=== PATIENT | female | born 1980 | race Two or more races ===

== ENCOUNTER → 2024-01-31 | Outpatient (CLI) | payer MEDICAID, SELFPAY ==
--- NOTE | 2024-01-31 13:55 | XR_ITS ---
Examination: AP pelvis 2 views TECHNIQUE: AP pelvis hips in neutral position, AP pelvis hips abduction position 2 views Exam date and time: January 31, 2024 1649 hours INDICATIONS: Left hip pain beginning 3 years ago. FINDINGS: No hip fracture or hip dislocation No significant hip arthritic change No avascular necrosis Bones of the pelvis intact IMPRESSION: No hip or pelvic fracture No significant arthritic change
== END | disposition home or self-care (01) ==
LOC: CDIM 02-01 09:14
PROVIDERS: PCP Nurse Practitioner Family; Referring Provider Nurse Practitioner Family; Visit Provider Nurse Practitioner Family
DX: R10.2 Pelvic and perineal pain (principal)
CPT/HCPCS: 72170

== ENCOUNTER → 2024-03-09 | Outpatient (CLI) | payer MEDICAID, SELFPAY ==
--- NOTE | 2024-03-09 16:30 | XR_ITS ---
Examination: Abdomen sonogram, Limited Date and time of exam: March 09, 2024 at 1646 hrs. Indications: Left inguinal and groin pain post inguinal hernia repair one year ago Technique: Real-time main scale transabdominal sonographic images of the upper abdomen obtained. Findings: No cystic or solid mass depicted Impression: No cystic or solid mass depicted As clinically warranted, consider CT pelvis without intravenous contrast follow-up
== END | disposition home or self-care (01) ==
PROVIDERS: PCP Nurse Practitioner Family; Referring Provider Internal Medicine; Visit Provider Internal Medicine
DX: K40.91 Unilateral inguinal hernia, without obstruction or gangrene, recurrent (principal)
CPT/HCPCS: 76705

== ENCOUNTER 2024-05-06 17:28 | Emergency (ER) | payer MEDICAID, SELFPAY ==
[2024-05-06 18:17] VITALS: BP 159/95; PULSE 87; RESP 16; TEMP 37.2; O2SAT 99; BMI 29.0
--- NOTE | 2024-05-06 18:55 | EKG_ITS ---
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pdf
--- NOTE | 2024-05-06 18:55 | XR_ITS ---
Examination: PA lateral chest 2 views Technique: Upright PA lateral chest 2 views Exam date and time: May 06, 2024 1933 hrs. Indications: Onset chest pain today. Findings: Normal heart size No pneumonia or pulmonary edema The osseous structures are intact Impression: No pneumonia or pulmonary edema
--- NOTE | 2024-05-06 18:55 | PD.EDRME ---
Rapid Medical Screening Exam RME Arrival date/time: 05/06/24 17:28 43-year-old female reports with complaints of chest pain that radiates to left neck and jaw for several days Chief Complaint: General Adult/Misc Complain Time Seen by Provider: 05/06/24 18:21 Vital signs: Vital Signs Temperature 98.9 F 05/06/24 18:17 Pulse Rate 87 05/06/24 18:17 Respiratory Rate 16 05/06/24 18:17 Blood Pressure 159/95 H 05/06/24 18:17 Pulse Oximetry (%) 99 05/06/24 18:17 Oxygen Delivery Method Room Air 05/06/24 18:17 RME Narrative: 23:26 patient is a 43-year-old female with history of hypothyroidism, takes levothyroxine daily, presents to the emergency department with multiple complaints. Patient states that she was feeling sick since yesterday. By this she means that she was nauseated and had a headache. Patient awoke with similar symptoms and took her blood pressure. It was elevated at 149/88 and at that point the patient then developed shortness of breath, impending feeling of doom, tingling to the limbs and she lost consciousness while sitting at home this morning as was taking her blood sugar but did not slump over and remembers the entire event. Patient vomited once today. Patient also states that she developed chest pain with radiation to the jaw and to the neck earlier today. She denies active chest pain now. Patient's exam is completely normal. Regular rate and rhythm, lungs are clear, no goiter, no abdominal tenderness. She appears anxious. I have ordered free T4 and we will need to wait for that. In the meantime I have ordered Ativan and acetaminophen for the patient. Will reevaluate. Her vital signs are stable and normal, her workup thus far is reassuring. 00:51 patient is resting comfortably. When awoken she states that all of her symptoms have resolved. She is feeling much better and wants to go home. Will discharge the patient with instructions to follow-up with her primary care doctor within the next several days. Patient's EKG is somewhat abnormal and her primary doctor is already referred her to a extrusion supervisor for that.
[2024-05-06 19:24] LABS: Basophils # (Auto) 0.1 Thou/mm3 (0.0-0.2); Basophils % (Auto) 1 % (0-2.5); Eosinophils # (Auto) 0.3 Thou/mm3 (0.0-0.5); Eosinophils % (Auto) 2 % (0-10); Hematocrit 35.8 % (36.0-46.0); Hemoglobin 11.7 g/dL (12.0-16.0); Immature Granulocytes % (Auto) 0 % (0-0); Immature Granulocytes Auto 0.04 Thou/mm3 (0.00-0.00); Lymphocytes # (Auto) 1.6 Thou/mm3 (1.0-4.8); Lymphocytes % (Auto) 12 % (10-50); Mean Corpuscular HGB Conc 32.7 g/dl (31.0-37.0); Mean Corpuscular Hemoglobin 25.3 pg (25.0-35.0); Mean Corpuscular Volume 78 fL (80-100); Monocytes # (Auto) 0.7 Thou/mm3 (0.0-0.8); Monocytes % (Auto) 5 % (0-12); Neutrophils # (Auto) 10.1 Thou/mm3 (1.8-7.7); Neutrophils % (Auto) 80 % (37-80); Nucleated Red Blood Cell % 0 /100 WBC (0); Platelet Count 302 Thou/mm3 (140-440); RDW Standard Deviation 43.9 fL (36.4-46.3); Red Blood Count 4.62 Miln/mm3 (4.00-5.20); White Blood Count 12.7 Thou/mm3 (3.6-11.0)
[2024-05-06 19:43] LABS: Alanine Aminotransferase 11 U/L (10-49); Albumin, Serum 4.7 gm/dL (3.5-5.0); Albumin/Globulin Ratio 1.7 (1.2-2.2); Alkaline Phosphatase 62 U/L (46-116); Anion Gap 8 (7-16); Aspartate Amino Transferase 10 U/L (0-34); BUN/Creatinine Ratio 16 Ratio (12-20); Bilirubin,Total 0.5 mg/dL (0.3-1.2); Blood Urea Nitrogen 11 mg/dL (9-23); Calcium 9.4 mg/dL (8.3-10.6); Calcium (Corrected) 9.4 mg/dL (8.5-10.1); Carbon Dioxide 24.5 mMol/L (20.0-31.0); Chloride 108 mMol/L (98-107); Creatinine (Component) 0.7 mg/dL (0.6-1.3); Estimated Creatinine Clearance 95.4 mL/min (>60); Globulin 2.8 gm/dL (2.3-3.5); Glucose 136 mg/dL (74-106); Osmolality,Calculated 280 (275-295); Potassium 3.9 mMol/L (3.4-5.1); Sodium 140 mMol/L (136-145); Total Protein 7.5 gm/dL (5.7-8.2); Troponin I < 0.020 ng/mL (0.0-0.045); eGFR > 60 See Note
[2024-05-06 20:21] LABS: HCG,Qualitative Serum Negative
[2024-05-06 20:39] VITALS: BP 154/90; PULSE 70; RESP 18; TEMP 37.2; O2SAT 99
[2024-05-06] MEDS: ACETAMINOPHEN 500 MG TABLET 1000 MG PO (23:50)
[2024-05-06] MEDS: LORazepam 0.5 MG TABLET PO (23:51)
[2024-05-06 23:53] VITALS: BP 145/86; PULSE 76; RESP 18; TEMP 36.9; O2SAT 100
[2024-05-07 00:09] LABS: Free T4 (Free Thyroxine) 1.22 ng/dL (0.89-1.76)
[2024-05-07 01:07] VITALS: BP 135/84; PULSE 65; RESP 16; O2SAT 100
--- NOTE | 2024-05-07 04:49 | PD.EDADULT ---
ED General RME/HPI General Chief complaint: General Adult/Misc Complain Stated complaint: FEELING BAD Time Seen by Provider: 05/06/24 18:21 Arrival date/time: 05/06/24 17:28 RME / HPI RME / HPI narrative: DR. HEMAL PEARCE ED EVALUATION: Patient is a 43-year-old female with history of hypothyroidism, takes levothyroxine daily, presents to the emergency department with multiple complaints. Patient states that she was feeling sick since yesterday. By this she means that she was nauseated and had a headache. Patient awoke with similar symptoms and took her blood pressure. It was elevated at 149/88 and at that point the patient then developed shortness of breath, impending feeling of doom, tingling to the limbs and she lost consciousness while sitting at home this morning as was taking her blood sugar but did not slump over and remembers the entire event. Patient vomited once today. Patient also states that she developed chest pain with radiation to the jaw and to the neck earlier today. She denies active chest pain now. Related Data Home Medications ?Medication ?Instructions ?Recorded ?Confirmed levothyroxine 50 mcg tablet 50 mcg PO QDAY 08/13/22 08/14/22 Previous Rx's ?Medication ?Instructions ?Recorded ondansetron 4 mg disintegrating 4 mg PO Q6H PRN nausea and 05/07/24 tablet vomiting #14 tabs Allergies Allergy/AdvReac Type Severity Reaction Status Date / Time NKA* Allergy Uncoded 05/06/24 17:32 Review of Systems Review of Systems Systems Reviewed: All systems reviewed, normal except as documented Narrative Review of Systems: GEN: No fever, no chills, no weight loss EYES: No discharge, no visual changes, no pain HEENT: No ear pain, no congestion, no sore throat PULM: + shortness of breath, no cough, no congestion CV: + chest pain with radiation to the jaw and to the neck earlier today, no dyspnea on exertion, no palpitations GI: + nausea, + vomiting, no diarrhea, no pain, no constipation : No frequency, no urgency and no dysuria MUSC/SKEL: + jaw pain, + neck pain, no back pain SKIN: No rash PSYCH: No hallucinations, no depression HEME/LYMPH: No easy bleeding or bruising tendencies NEURO: No weakness, + headache, + tingling to the limbs and she lost consciousness (see HPI) Past Medical History Past Medical History NEUROLOGIC: Negative Neurological Disorders or Seizures CARDIAC: Negative Cardiac Disorders or Congestive Heart Failure RESPIRATORY: Positive Bronchitis; Negative Chronic Obstructive Pulmonary Disease (COPD) GASTROINTESTINAL: Positive Gastrointestinal Disorders and Gastroesophageal Reflux Disease; Negative Hepatitis GENITOURINARY: Negative Genitourinary Disorders or Renal Disease REPRODUCTIVE: Positive Previous Pregnancies MUSCULOSKELETAL: Negative Musculoskeletal Disorders ENDOCRINE: Positive Endocrine Disorders and Hypothyroidism; Negative Diabetes Mellitus Type 1 or Diabetes Mellitus Type 2 HEMATOLOGIC: Negative Blood Disorders PSYCHO/SOCIAL: Positive Depression (past) OTHER HISTORY: Positive Hospitalization (miscarriage); Negative Autoimmune Disease, Shingles, Blood Transfusions, Anesthesia Reactions, MRSA, Chicken Pox, Measles or Cancer Family History FAMILY HISTORY: Positive Family Cardiac Disorders, Family Cancer (prostate) and Family Surgery; Negative Family Psychiatric Problems, Family Respiratory Disorders, Family Gastrointestinal Problems or Family Anesthesia Reaction Social History SMOKING STATUS: Never smoker SUBSTANCE USE: does not use ALCOHOL: Never ED Exam Narrative Physical exam: GENERAL APPEARANCE:? alert and oriented x 4, well-developed, well-nourished, no acute distress. She appears anxious. HEENT: Normocephalic, atraumatic; pupils equal, round, reactive to light; EOMI; mucous membranes pink, moist; oropharynx clear NECK: Supple LUNGS: CTABL; no wheezes, no rales, no rhonchi HEART: Regular rate, regular rhythm; normal S1, S2; no murmurs ABDOMEN: non distended; normal BS;? soft, no tenderness, no guarding, no rebound; no masses, no organomegaly, no hernia?? BACK:? no CVA tenderness EXTREMITIES:? atraumatic; no edema NEUROLOGIC: awake; alert and oriented x4; cranial nerves II-XII grossly intact; no focal sensory or motor deficits PSYCHIATRIC:? appropriate mood and affect SKIN: warm, dry, normal color; no rashes Course Quality Measures none Orders Category Date Time Status EKG (ED ONLY) *Do not use* NOW Care 05/06/24 18:55 Completed EKG (ED Only) Stat Exams 05/06/24 18:55 Draft XR chest 2V Stat Exams 05/06/24 18:55 Completed CBC Stat Lab 05/06/24 19:16 Completed CMP [Comprehensive Metabolic Panel] Stat Lab 05/06/24 19:16 Completed Free T4 (Free Thyroxine) Stat Lab 05/06/24 19:16 Completed HCG,Qualitative Serum Stat Lab 05/06/24 19:16 Completed Troponin I Stat Lab 05/06/24 19:16 Completed Acetaminophen Tab [Tylenol ES Tab] Med 05/06/24 23:25 Discontinued 1,000 mg PO X1 ONE LORazepam [Ativan] Med 05/06/24 23:25 Discontinued 0.5 mg PO X1 ONE Reevaluation(s) Reevaluation #1: Patient is resting comfortably. When awakened she states that all of her symptoms have resolved. She is feeling much better and wants to go home. Thyroxine level is appropriate and therapeutic. Will discharge the patient with instructions to follow-up with her primary care doctor within the next several days. Patient's EKG is somewhat abnormal and her primary doctor is already referred her to a embossing machine operator helper for that. Time: 00:51 Vital Signs Vital signs: Vital Signs Temperature 98.9 F 05/06/24 18:17 Pulse Rate 87 05/06/24 18:17 Respiratory Rate 16 05/06/24 18:17 Blood Pressure 159/95 H 05/06/24 18:17 Pulse Oximetry (%) 99 05/06/24 18:17 Oxygen Delivery Method Room Air 05/06/24 18:17 [facility] Patient data External records reviewed:: [facility] previous records (Reviewed operative note by Dr. Fuentes, dated 08/14/22.) Clinical information provided by:: patient Social determinants that could affect healthcare access:: none Patient has the following chronic illnesses:: Hypothyroidism, takes levothyroxine daily. How is presenting disease/condition affected by chronic disease/condition?: exacerbated by Evaluation data The following diagnostics were reviewed and interpreted by me:: lab results, radiology exam(s) and EKG tracing(s) (EKG#1: EKG at 1859 hours. Interpreted by me: sinus rhythm, rate 79, no STEMI) Lab and/or radiology exams considered but not ordered:: none Interpretation Summary: Procedure(s): XR chest 2V Accession Number(s): [id number] cc: Robin Rouse MD; Johnny([facility])Handy NP; Sai Cooley PA-C~ Examination: PA lateral chest 2 views Technique: Upright PA lateral chest 2 views Exam date and time: May 06, 2024 1933 hrs. Indications: Onset chest pain today. Findings: Normal heart size No pneumonia or pulmonary edema The osseous structures are intact Impression: No pneumonia or pulmonary edema Dictated By: Robin Rouse MD Medications Medications considered but not ordered:: none Medication administrations:: Medication Administration History Discontinued Medications Acetaminophen (Acetaminophen 500 Mg Tablet) 1,000 mg PO X1 ONE Stop: 05/06/24 23:26 Last Admin: 05/06/24 23:50 Dose: 1,000 mg Documented By: CCT Lorazepam (Lorazepam 0.5 Mg Tablet) 0.5 mg PO X1 ONE Stop: 05/06/24 23:26 Last Admin: 05/06/24 23:51 Dose: 0.5 mg Documented By: CCT see above Consultations Consultation(s) initiated? (list below): No Diagnosis Differential Diagnosis ED Complaint MDM: Headache, Vomiting, dehydration, anxiety Most likely diagnosis given after review of the tests above:: Headache Vomiting Admission Indicated Admission indicated?: not indicated Explain why admission is indicated or not indicated:: Patient has no emergent abnormalities on his studies and can be managed on an outpatient basis. Admission Request Was there a request for admission?: No Disposition Plan Disposition Plan: Discharge Discharge Attestation Discharge Attestation: The patient and all family members were given an opportunity to ask questions and understood the discharge instructions. Discharge instructions specifically effects, indications for sooner follow up or return to the emergency department, and the expected course of current diagnosis. Patient condition: Stable Medical Decision Making MDM Narrative MDM Narrative: I have ordered free T4 and we will need to wait for that. In the meantime I have ordered Ativan and acetaminophen for the patient. Will reevaluate. Her vital signs are stable and normal, her workup thus far is reassuring. 00:51 patient is resting comfortably. When awakened she states that all of her symptoms have resolved. She is feeling much better and wants to go home. Thyroxine level is appropriate and therapeutic. Will discharge the patient with instructions to follow-up with her primary care doctor within the next several days. Patient's EKG is somewhat abnormal and her primary doctor is already referred her to a embossing machine operator helper for that. Differential Diagnosis Differential Diagnosis: Headache, Vomiting, dehydration, anxiety Lab Data 05/06/24 19:16 05/06/24 19:16 Labs: Lab Results 05/06/24 Range/Units 19:16 WBC 12.7 H (3.6-11.0) Thou/mm3 RBC 4.62 (4.00-5.20) Miln/mm3 Hgb 11.7 L (12.0-16.0) g/dL Hct 35.8 L (36.0-46.0) % MCV 78 L (80-100) fL MCH 25.3 (25.0-35.0) pg MCHC 32.7 (31.0-37.0) g/dl RDW Std Deviation 43.9 (36.4-46.3) fL Plt Count 302 (140-440) Thou/mm3 Neut % (Auto) 80 (37-80) % Lymph % (Auto) 12 (10-50) % [place] % (Auto) 5 (0-12) % Eos % (Auto) 2 (0-10) % Baso % (Auto) 1 (0-2.5) % Neut # (Auto) 10.1 H (1.8-7.7) Thou/mm3 Lymph # (Auto) 1.6 (1.0-4.8) Thou/mm3 [place] # (Auto) 0.7 (0.0-0.8) Thou/mm3 Eos # (Auto) 0.3 (0.0-0.5) Thou/mm3 Baso # (Auto) 0.1 (0.0-0.2) Thou/mm3 Immature Gran # (Auto) 0.04 H (0.00-0.00) Thou/mm3 Absolute Nucleated RBC 0.00 (0.00-0.00) Thou/mm3 Immature Gran % 0 (0-0) % Nucleated RBC % 0 (0) /100 WBC Sodium 140 (136-145) mMol/L Potassium 3.9 (3.4-5.1) mMol/L Chloride 108 H (98-107) mMol/L Carbon Dioxide 24.5 (20.0-31.0) mMol/L Anion Gap 8 (7-16) BUN 11 (9-23) mg/dL Creatinine 0.7 (0.6-1.3) mg/dL Estim Creat Clear Calc 95.4 (>60) mL/min eGFR > 60 (60 - ) See Note BUN/Creatinine Ratio 16 (12-20) Ratio Glucose 136 H (74-106) mg/dL Calculated Osmolality 280 (275-295) Calcium 9.4 (8.3-10.6) mg/dL Corrected Calcium 9.4 (8.5-10.1) mg/dL Total Bilirubin 0.5 (0.3-1.2) mg/dL AST 10 (0-34) U/L ALT 11 (10-49) U/L Alkaline Phosphatase 62 (46-116) U/L Troponin I < 0.020 (0.0-0.045) ng/mL Total Protein 7.5 (5.7-8.2) gm/dL Albumin 4.7 (3.5-5.0) gm/dL Globulin 2.8 (2.3-3.5) gm/dL Albumin/Globulin Ratio 1.7 (1.2-2.2) Free T4 1.22 (0.89-1.76) ng/dL HCG, Qual Negative Discharge Plan Plan Patient Disposition: HOME (Self Care) Disposition Comment: Stable for discharge Patient condition on transfer: Stable Prescriptions/Referrals Prescriptions/Med Rec: New ondansetron 4 mg tablet,disintegrating 4 mg PO Q6H PRN (Reason: nausea and vomiting) Qty: 14 0RF No Action levothyroxine 50 mcg Tablet 50 mcg PO QDAY Referrals: Johnny([facility]),PORFIRIO Murrell [Primary Care Provider] - In 1 week Problem List Clinical Impression: Headache, Vomiting Patient/Caregiver Discharge Instructions Education Materials: Self-Care for Vomiting and Diarrhea, Self-Care for Headaches, ED Vomiting (Adult) Additional Instructions: Please return to the emergency department for any worsening or any further medical problems. Otherwise you should follow-up with your primary care doctor within the next several days. Print Language: Hebrew Stand Alone Forms: [employer] Award Info., Patient Portal Info Letter
== END 2024-05-07 01:14 | disposition home or self-care (01) ==
PROVIDERS: Physician Assistant; Emergency Provider Emergency Medicine; PCP Nurse Practitioner Family
DX: R11.2 Nausea with vomiting, unspecified (principal); R51.9 Headache, unspecified; R07.9 Chest pain, unspecified; I44.4 Left anterior fascicular block
CPT/HCPCS: 36415; 71046; 80053; 84439; 84484; 84703; 85025; 93005; 99283; A9270

== ENCOUNTER → 2024-06-03 | Outpatient (CLI) | payer MEDICAID, SELFPAY ==
--- NOTE | 2024-06-03 12:00 | XR_ITS ---
Examination: MRI brain without intravenous contrast. Date and time of exam: June 03, 2024 at 12:56 PM INDICATIONS: Frontal headaches and dizziness beginning February 17, 2024, numbness mouth and left extremities Technique: Multiple axial and sagittal images of the brain obtained. Siemens high-resolution 1.5 Mariam short bore scanners utilized. Sagittal sections, T1-weighted, TR 500, TE 14, are performed. Axial sections proton-density and T2-weighted have been obtained. Inversion recovery axial images, TR 9, 260, TE 111, TI 2500. Diffusion weighted images, axial sections, TR 4800, TE 128, B value 1000 Axial sections, ADC map, TR 4800, TE 128 Findings: Enlargement of the sella turcica is not present. The optic chiasm and infundibular are not remarkable. Prepontine and interpeduncular cisterns are not enlarged. There is no localized enlargement of the medulla or laura. Fourth ventricle and cerebellar tonsils appear normal in position. No subacute area of hemorrhage density is seen. Mass in the cerebellopontine angle region is not evident. Globes symmetrical. Orbital musculature including medial lateral rectus muscles do not exhibit abnormality. Diffusion-weighted images demonstrate no focus of restricted diffusion. Increased white matter signal not seen Mass effect upon the ventricular system is not identified. Impression: Negative for acute hemorrhage, mass effect or midline shift No acute infarct No MR findings diagnostic for demyelinating disease
== END | disposition home or self-care (01) ==
LOC: SMRI 11:32
PROVIDERS: PCP Nurse Practitioner Family; Referring Provider Nurse Practitioner Family; Visit Provider Nurse Practitioner Family
DX: R51.9 Headache, unspecified (principal)
CPT/HCPCS: 70551